=== PATIENT | male | born 1970 | race Caucasian/White ===

== ENCOUNTER 2022-03-30 12:34 | Emergency (ER) | payer OTHER, SELFPAY ==
[2022-03-30 13:52] LABS: Urine Blood 1+ (Negative); Urine Glucose Negative (Negative); Urine Protein 1+ (Negative); Urine Specific Gravity >=1.030 (1.005-1.030); Urine pH 5.5 (5.0-7.0)
[2022-03-30] MEDS ORDERED: CEFTRIAXONE 250 MG/VIAL ONE (14:03)
[2022-03-30] MEDS ORDERED: LIDOCAINE 1% MPF 2 ML AMPULE ONE (14:03)
[2022-03-30] MEDS ORDERED: AZITHROMYCIN 250 MG TAB ONE (14:03)
--- NOTE | 2022-03-30 14:13 | ER ---
Nurse's Notes [facility] Name: Alex Gibbons Age: 51 yrs Sex: Male : 1970 Arrival Date: 03/30/2022 Time: 12:35 Bed 12 Private MD: Diagnosis: Dysuria;Encounter for screening for infections with a predominantly sexual mode of transmission Presentation: 03/30 12:41 Chief complaint: Patient states: it tucker when i pee and i have yellow discharge. for 2 tw2 weeks. have unprotected sex. Coronavirus screen: At this time, the client does not indicate any symptoms associated with coronavirus-19. Ebola Screen: Patient denies travel to an Ebola-affected area in the 21 days before illness onset. Initial Sepsis Screen: Does the patient meet any 2 criteria? HR > 90 bpm. No. Patient's initial sepsis screen is negative. Does the patient have a suspected source of infection? No. Patient's initial sepsis screen is negative. Risk Assessment: Do you want to hurt yourself or someone else? Patient reports no desire to harm self or others. Onset of symptoms was March 30, 2022. 12:41 Method Of Arrival: Ambulatory tw2 12:41 Acuity: JEANNE 4 tw2 Triage Assessment: 12:42 General: Appears in no apparent distress. Behavior is calm, cooperative, appropriate tw2 for age. Pain: Complains of pain in when urinating. : Reports burning with urination, yellow discharge. Historical: - Allergies: 12:42 No Known Allergies; tw2 - Home Meds: 12:42 None [Active]; tw2 - PMHx: 12:42 renal cell carcinoma; tw2 - PSHx: 12:42 None; tw2 - Immunization history:: Client reports having NOT received the Covid vaccine. - Social history:: Smoking status: Patient reports the use of cigarette tobacco products, 1 pack per week. Screenin:20 Abuse screen: Denies threats or abuse. Denies injuries from another. Nutritional ld1 screening: No deficits noted. Tuberculosis screening: No symptoms or risk factors identified. Fall Risk None identified. Assessment: 14:20 Reassessment: see triage assessment. ld1 Vital Signs: 12:41 BP 145 / 100; Pulse 103; Resp 17; Temp 97.6(TE); Pulse Ox 100% on R/A; Weight 65.77 kg tw2 (R); Height 5 ft. 5 in. (165.10 cm); 14:20 BP 136 / 99; Pulse 99; Resp 18; Pulse Ox 100% on R/A; Pain 0/10; ld1 12:41 Body Mass Index 24.13 (65.77 kg, 165.10 cm) tw2 ED Course: 12:35 Patient arrived in ED. as 12:42 Triage completed. tw2 12:44 Arm band placed on. tw2 12:57 Isaias Torres PA is PHCP. cp 12:57 Yung Chopra MD is Attending Physician. cp 13:52 Urine Microscopic Only Sent. ld1 13:52 GC (GONORR/CHLAMYDIA) Probe Sent. ld1 14:02 Trixie Fisher, BAILEY is Primary Nurse. ld1 14:20 Patient has correct armband on for positive identification. Placed in gown. Bed in low ld1 position. Call light in reach. Side rails up X2. commercial sales director on. Pulse ox on. NIBP on. Door closed. Noise minimized. 14:20 No provider procedures requiring assistance completed. Patient did not have IV access ld1 during this emergency room visit. Administered Medications: 14:04 Drug: Rocephin (cefTRIAXone) 250 mg Route: IM; Site: left deltoid; ld1 14:04 Drug: Zithromax (azithromycin) 1 grams Route: PO; ld1 Medication: 14:20 VIS not applicable for this client. ld1 Outcome: 14:12 Discharge ordered by MD. cp 14:20 Discharged to home ambulatory. ld1 14:20 Condition: stable 14:20 Discharge instructions given to patient, family, Instructed on discharge instructions, follow up and referral plans. medication usage, Demonstrated understanding of instructions, follow-up care, medications, Prescriptions given X 1. 14:21 Patient left the ED. ld1 Signatures: Alexia Cabral as Isaias Torres PA PA cp Carla Fuller RN RN tw2 Trixie Fisher, BAILEY RN ld1 Corrections: (The following items were deleted from the chart) 12:43 12:42 PMHx: None; tw2 tw2
--- NOTE | 2022-03-30 14:13 | EDPHYS ---
Physician Documentation [facility] Name: Alex Gibbons Age: 51 yrs Sex: Male : 1970 Arrival Date: 03/30/2022 Time: 12:35 Bed 12 Private MD: ED Physician Yung Chopra HPI: 03/30 13:21 This 51 yrs old Male presents to ER via Ambulatory with complaints of Penile Pain, cp Penile Discharge. 13:21 The patient presents with symptoms include dysuria, purulent penile discharge. Onset: cp The symptoms/episode began/occurred 2 week(s) ago. Associated signs and symptoms: The patient has no apparent associated signs or symptoms. 13:21 Patient reports having unprotected intercourse. cp Historical: - Allergies: 12:42 No Known Allergies; tw2 - Home Meds: 12:42 None [Active]; tw2 - PMHx: 12:42 renal cell carcinoma; tw2 - PSHx: 12:42 None; tw2 - Immunization history:: Client reports having NOT received the Covid vaccine. - Social history:: Smoking status: Patient reports the use of cigarette tobacco products, 1 pack per week. ROS: 13:25 Constitutional: Negative for body aches, chills, fever, poor PO intake. cp 13:25 Eyes: Negative for injury, pain, redness, and discharge. cp 13:25 ENT: Negative for drainage from ear(s), ear pain, sore throat, difficulty swallowing, difficulty handling secretions. 13:25 Cardiovascular: Negative for chest pain. 13:25 Respiratory: Negative for cough, shortness of breath, wheezing. 13:25 Abdomen/GI: Negative for abdominal pain, nausea, vomiting, and diarrhea. 13:25 Back: Negative for pain at rest, pain with movement. 13:25 : Positive for burning with urination, penile discharge, Negative for testicular pain 13:25 Skin: Negative for rash. 13:25 All other systems are negative. Exam: 13:30 Constitutional: The patient appears in no acute distress, alert, awake, comfortable, cp non-toxic, well developed, well nourished. 13:30 Head/Face: Normocephalic, atraumatic. cp 13:30 Chest/axilla: Inspection: normal. 13:30 Cardiovascular: Rate: tachycardic. 13:30 Respiratory: the patient does not display signs of respiratory distress, Respirations: normal, no use of accessory muscles, no retractions. 13:30 Abdomen/GI: Inspection: abdomen appears normal, Palpation: abdomen is soft and non-tender, in all quadrants. 13:30 Back: pain, is absent, ROM is normal. 13:30 Skin: no rash present. 13:30 Neuro: Orientation: to person, place \T\ time. Mentation: is normal, Motor: moves all fours, strength is normal, Gait: is steady, at a normal pace, without difficulty. Vital Signs: 12:41 BP 145 / 100; Pulse 103; Resp 17; Temp 97.6(TE); Pulse Ox 100% on R/A; Weight 65.77 kg tw2 (R); Height 5 ft. 5 in. (165.10 cm); 14:20 BP 136 / 99; Pulse 99; Resp 18; Pulse Ox 100% on R/A; Pain 0/10; ld1 12:41 Body Mass Index 24.13 (65.77 kg, 165.10 cm) tw2 MDM: 13:38 Patient medically screened. cp 14:12 Data reviewed: vital signs, nurses notes, lab test result(s), and as a result, I will cp discharge patient. 14:12 Differential diagnosis: UTI, prostatitis, urethritis, STD. Counseling: I had a detailed cp discussion with the patient and/or guardian regarding: the historical points, exam findings, and any diagnostic results supporting the discharge/admit diagnosis, lab results, to return to the emergency department if symptoms worsen or persist or if there are any questions or concerns that arise at home. 03/30 13:22 Order name: GC (GONORR/CHLAMYDIA) Probe 03/30 13:22 Order name: Urine Microscopic Only 03/30 13:22 Order name: Urine Dipstick-Ancillary (obtain specimen); Complete Time: 13:52 03/30 13:52 Order name: Urine Dipstick-Ancillary; Complete Time: 14:10 EDPR 03/30 14:11 Interpretation: Normal except: UBLD 1+; UPROT 1+; UESTR 2+. cp Administered Medications: 14:04 Drug: Rocephin (cefTRIAXone) 250 mg Route: IM; Site: left deltoid; ld1 14:04 Drug: Zithromax (azithromycin) 1 grams Route: PO; ld1 Disposition: 14:32 Co-signature as Attending Physician, Yung Chopra MD I agree with the assessment and kdr plan of care. Disposition Summary: 03/30/22 14:12 Discharge Ordered Location: Home cp Problem: new cp Symptoms: have improved cp Condition: Stable cp Diagnosis - Dysuria cp - Encounter for screening for infections with a predominantly sexual mode of cp transmission Followup: cp - With: Private Physician - When: 2 - 3 days - Reason: Worsening of condition Discharge Instructions: - Discharge Summary Sheet cp - Dysuria cp - Health Maintenance, Male cp - Preventing Sexually Transmitted Infections, Adult cp Forms: - Medication Reconciliation Form cp - Thank You Letter cp - Antibiotic Education cp - Prescription Opioid Use cp Prescriptions: - Doxycycline Hyclate 100 mg Oral Tablet - take 1 tablet by ORAL route every 12 hours; 20 tablet; Refills: 0, Product cp Selection Permitted Signatures: Dispatcher [employer] EDMS Yung Chopra MD MD [facility] Isaias Torres PA PA Carla Fuller RN RN tw2 Trixie Fisher RN RN ld1 Corrections: (The following items were deleted from the chart) 12:43 12:42 PMHx: None; tw2 tw2
[2022-03-30 14:21] LABS: Urine Bacteria 20-50 /HPF (NONE SEEN); Urine Mucus 1+ /HPF (NONE SEEN); Urine RBC <5 /HPF (NONE SEEN)
[2022-03-30 15:14] VITALS: TEMP 97.6; O2SAT 100
[2022-03-30 15:17] VITALS: BP 136/99
== END 2022-03-30 14:21 | disposition home or self-care (01) ==
LOC: ER 12:34
DX: R30.0 Dysuria (principal); Z11.3 Encounter for screening for infections with a predominantly sexual mode of transmission; F17.210 Nicotine dependence, cigarettes, uncomplicated
CPT/HCPCS: 81003; 81015; 87086; 87088; 87490; 87590; 96372; 99284; J0696